=== PATIENT | female | born 1975 | race American Indian/Alaskan Native ===

== ENCOUNTER → 2018-01-20 17:01 | Emergency (ER) | payer MEDICARE ==
[2018-01-20 17:02] VITALS: BMI 29.8
== END | disposition left against medical advice (07) ==
LOC: C.ER 17:01
DX: Z02.89 Encounter for other administrative examinations (principal); Z00.00 Encounter for general adult medical examination without abnormal findings

== ENCOUNTER 2018-03-05 10:13 | Inpatient (IN) | payer MEDICARE ==
[2018-03-05 10:13] VITALS: BMI 29.8
--- NOTE | 2018-03-05 11:16 | C.PDOC ---
History Of Present Illness 42 y/o female, with history of pancreatitis, comes in complaining of abdominal cramping for the past 5 days, associated with nausea, vomiting, and diarrhea. Patient states she vomited 10 minutes ago in the ER. Patient has PSHx of ap pendectomy. Denies fever. LAST ETOH 2 DAYS AGO Time Seen by Provider: 03/05/18 10:56 Chief Complaint (Nursing): Abdominal Pain History Per: Patient History/Exam Limitations: no limitations Onset/Duration Of Symptoms: Days Current Symptoms Are (Timing): Still Present Past Medical History Reviewed: Historical Data, Nursing Documentation, Vital Signs Vital Signs: Last Vital Signs Temp 98.3 F 03/05/18 10:41 Pulse 106 H 03/05/18 10:41 Resp 18 03/05/18 10:41 BP 122/99 H 03/05/18 10:41 Pulse Ox 99 03/05/18 10:41 - Medical History PMH: Pancreatitis Denies: HIV, HTN, Chronic Kidney Disease, Seizures Surgical History: Appendectomy - [facility] Procedures DETOXIFICATION SERVICES FOR SUBSTANCE ABUSE TREATMENT (11/22/14) Family History: States: No Known Family Hx - Social History Hx Tobacco Use: No Hx Alcohol Use: Yes Hx Substance Use: Yes (cocaine) - Immunization History Hx Tetanus Toxoid Vaccination: Yes Hx Influenza Vaccination: Yes Hx Pneumococcal Vaccination: Yes Review Of Systems Except As Marked, All Systems Reviewed And Found Negative. Constitutional: Negative for: Fever, Chills Cardiovascular: Negative for: Chest Pain Respiratory: Negative for: Shortness of Breath Gastrointestinal: Positive for: Nausea, Vomiting, Abdominal Pain (cramping), Diarrhea Skin: Negative for: Rash Physical Exam - Physical Exam Appears: Non-toxic, No Acute Distress, Other (dehydrated) Skin: Warm, Dry Head: Atraumatic, Normacephalic Eye(s): bilateral: Normal Inspection Oral Mucosa: Moist Neck: Supple Chest: Symmetrical Cardiovascular: Rhythm Regular, No Murmur Respiratory: Normal Breath Sounds, No Rales, No Rhonchi, No Wheezing Gastrointestinal/Abdominal: Soft, No Tenderness, No Distention, No Guarding, No Rebound Extremity: Bilateral: Atraumatic, Normal Color And Temperature, Normal ROM Neurological/Psych: Oriented x3, Normal Speech ED Course And Treatment - Laboratory Results Result Diagrams: 03/05/18 11:32 03/05/18 11:32 O2 Sat by Pulse Oximetry: 99 (RA) Pulse Ox Interpretation: Normal Progress Note: Labs ordered. Patient was given bentyl IM, zofran IV, IV fluids. Reevaluation Time: 12:35 Reassessment Condition: Unchanged (PERSIST PAIN. +LIPASE WILL ADMIT) - Physician Consult Information Time Consulting Physician Contacted: 12:53 Physician Contacted: Gabriele Colunga Disposition Counseled Patient/Family Regarding: Studies Performed, Diagnosis - Disposition Disposition: HOSPITALIZED Disposition Time: 12:53 Condition: SERIOUS Forms: [facility] (Ecuadorean) - POA Present On Arrival: Poor Glycemic Control - Clinical Impression Clinical Impression: Pancreatitis, acute, Alcohol dependence - Scribe Statement The provider has reviewed the documentation as recorded by the Ag Meza Provider Attestation: All medical record entries made by the Ag were at my direction and personally dictated by me. I have reviewed the chart and agree that the record accurately reflects my personal performance of the history, physical exam, medical decision making, and the department course for this patient. I have also personally directed, reviewed, and agree with the discharge instructions and disposition.
[2018-03-05] MEDS ORDERED: Sodium Chloride 0.9% 1,000 ML ONE (11:36)
[2018-03-05 11:37] LABS: HEMOGLOBIN 12.9 g/dL (11.0-16.0); MEAN CELL VOLUME 77.1 fL (81.0-99.0); MEAN CORPUSCULAR HEMOGLOBIN 25.5 pg (27.0-31.0); MEAN CORPUSCULAR HGB CONC 33.1 g/dL (33.0-37.0); MEAN PLATELET VOLUME 8.7 fL (7.2-11.7); RBC 5.07 Mil/uL (3.80-5.20); RED CELL DISTRIBUTION WIDTH 16.5 % (11.5-14.5)
[2018-03-05 12:09] LABS: ALB/GLOB RATIO 1.2 (1.0-2.1); ALBUMIN 4.7 g/dL (3.5-5.0); ALT/SGPT 108 U/L (9-52); AST/SGOT 105 U/L (14-36); BLOOD UREA NITROGEN 12 mg/dL (7-17); CALCIUM 9.7 mg/dl (8.6-10.4); GFR NON-AFRICAN AMERICAN > 60; LIPASE 839 U/L (23-300)
[2018-03-05] MEDS ORDERED: HYDROmorphone 0.5 mg/0.5 ml ISec IVP STA (12:35)
[2018-03-05] MEDS ORDERED: HYDROmorphone 0.5 mg/0.5 ml ISec IVP ONE (13:00)
[2018-03-05] MEDS ORDERED: Morphine 4 MG/ML VIAL ONE ×2 (16:48→20:22)
[2018-03-05] MEDS: Morphine 4 MG/ML VIAL IVP PRN ×2 (16:55→20:25)
[2018-03-05] MEDS ORDERED: Dextrose 5%-0.225% NS 1,000 ML IV ONE (18:08)
[2018-03-05] MEDS: Dextrose 5%/0.45% NS 1,000 ML IV SCH (18:09)
--- NOTE | 2018-03-05 20:48 | CP.PCM.HP ---
Past Patient History - Infectious Disease Hx of Infectious Diseases: None - Past Medical History & Family History Past Medical History?: Yes - Past Social History Smoking Status: Heavy Smoker > 10 Cigarettes Daily - CARDIAC Hx Hypertension: No - PULMONARY Hx Tuberculosis: No - NEUROLOGICAL Hx Seizures: No - HEENT Hx HEENT Problems: No - RENAL Hx Chronic Kidney Disease: No - ENDOCRINE/METABOLIC Hx Endocrine Disorders: No - HEMATOLOGICAL/ONCOLOGICAL Hx Human Immunodeficiency Virus (HIV): No - INTEGUMENTARY Hx Dermatological Problems: No - MUSCULOSKELETAL/RHEUMATOLOGICAL Hx Falls: Yes - GASTROINTESTINAL Hx Pancreatitis: Yes - GENITOURINARY/GYNECOLOGICAL Hx Genitourinary Disorders: No - PSYCHIATRIC Hx Substance Use: Yes (cocaine) - SURGICAL HISTORY Hx Appendectomy: Yes - ANESTHESIA Hx Anesthesia: Yes Hx Anesthesia Reactions: No Hx Malignant Hyperthermia: No Meds Allergies/Adverse Reactions: Allergies Allergy/AdvReac Type Severity Reaction Status Date / Time ibuprofen Allergy Verified 09/09/15 16:08 Results - Vital Signs Recent Vital Signs: Last Vital Signs Temp 98.1 F 03/05/18 18:47 Pulse 72 03/05/18 18:47 Resp 17 03/05/18 18:47 BP 126/79 03/05/18 18:47 Pulse Ox 97 03/05/18 18:47 - Labs Result Diagrams: 03/05/18 11:32 03/05/18 11:32 Labs: Laboratory Results - last 24 hr 03/05/18 03/05/18 11:32 11:32 WBC 6.0 RBC 5.07 Hgb 12.9 Hct 39.1 MCV 77.1 L D MCH 25.5 L MCHC 33.1 RDW 16.5 H Plt Count 234 MPV 8.7 Sodium 135 Potassium 3.3 L Chloride 92 L Carbon Dioxide 30 Anion Gap 16 BUN 12 Creatinine 0.7 Est GFR ( Amer) > 60 Est GFR (Non-Af Amer) > 60 Random Glucose 123 H D Calcium 9.7 Total Bilirubin 1.2 AST 105 H ALT 108 H D Alkaline Phosphatase 121 Total Protein 8.6 H Albumin 4.7 Globulin 3.9 Albumin/Globulin Ratio 1.2 Lipase 839 H Alcohol, Quantitative < 10
[2018-03-06] MEDS ORDERED: Morphine 4 MG/ML VIAL ONE ×3 (00:30→09:55)
[2018-03-06] MEDS: Morphine 4 MG/ML VIAL IVP PRN ×4 (00:31→17:15)
[2018-03-06] MEDS: Dextrose 5%/0.45% NS 1,000 ML IV SCH (02:14)
[2018-03-06] MEDS ORDERED: Dextrose 5%-0.225% NS 1,000 ML IV ONE (02:14)
--- NOTE | 2018-03-06 04:18 | HP ---
CHIEF COMPLAINT: Abdominal pain for five days. HISTORY OF PRESENT ILLNESS: This is a 42-year-old female, well known to me, with a history of pancreatitis, alcoholism, anxiety and depression who has been drinking and according to the patient, her last alcohol intake was two days ago. Five days ago, she developed acute upper abdominal pain, radiating to the back, associated with nausea, vomiting and diarrhea. Along with that, she has . The patient has generalized aches and pains. She is weak. She is anxious. She is having palpitation and dizziness. She denies any hematemesis, melena, or hematochezia. She denies any prior history of gallbladder stones or cholesterol problems. There is no history of polyuria, polydipsia, or polyphagia. There is no history of hematuria or pyuria. She denies any sneezing, itchy eyes, or itchy nose. There is no history of back pain, hip pain, or neck pain. PAST MEDICAL HISTORY: Alcoholism, pancreatitis, alcoholic gastritis. SOCIAL HISTORY: She smokes. She drinks. FAMILY HISTORY: Negative for pancreatitis. CURRENT MEDICATIONS: Percocet 10 mg at home. PHYSICAL EXAMINATION: GENERAL: Middle-aged female, in distress. VITAL SIGNS: Blood pressure 134/90, pulse 74, respiratory rate 18, temperature 98.7. SKIN: Warm. Good turgor. No bruising. No purpura. She has tattoos. HEENT: Atraumatic and normocephalic. Negative pallor. Negative jaundice. Extraocular movements are intact. NECK: Supple. No JVD. No lymph node. No thyromegaly. No carotid bruits. CHEST WALL: Bilateral symmetrical expansion. No tenderness. No deformity. BREASTS: No masses. LUNGS: Bilaterally clear. No rales. No rhonchi. CARDIOVASCULAR SYSTEM: PMI in the fifth intercostal space. S1 and S2 are regular. No heave. No thrill. ABDOMEN: Soft. Epigastric tenderness. Bowel sounds are present. RECTAL AND PELVIC: Refused. EXTREMITIES: No clubbing, cyanosis, or edema. CENTRAL NERVOUS SYSTEM: Awake, alert, oriented x3. Anxious, tremulous. ASSESSMENT: 1. Acute alcoholic pancreatitis. 2. Hypokalemia. 3. Alcoholic hepatitis. 4. Alcoholism. PLAN: Admit. Detailed orders are written. Seen and examined. Gabriele Colunga MD
[2018-03-06] MEDS ORDERED: Enoxaparin 40 mg Syringe SC SCH (10:00)
[2018-03-06] MEDS ORDERED: Lactated Ringer's 1,000 ML IV ONE ×2 (11:00→14:00)
[2018-03-06] MEDS ORDERED: Propofol 10 mg/ml Inj (20 ML) ONE (11:06)
[2018-03-06] MEDS ORDERED: Midazolam 2 MG/2 ML VIAL ONE (11:06)
[2018-03-06 11:09] LABS: BARBITURATES, UR NEGATIVE (NEGATIVE); BENZODIAZEPINES, UR NEGATIVE (NEGATIVE); PHENCYCLIDINE, UR NEGATIVE (NEGATIVE)
[2018-03-06 11:35] VITALS: O2SAT 100
[2018-03-06 11:49] LABS: OPIATES, UR POSITIVE (NEGATIVE)
[2018-03-06 16:01] VITALS: TEMP 98.2
[2018-03-06 17:32] VITALS: BP 130/92; PULSE 74; RESP 16
--- NOTE | 2018-03-06 19:13 | CP.PCM.PN ---
Subjective - Date & Time of Evaluation Date of Evaluation: 03/06/18 Time of Evaluation: 19:00 - Subjective Subjective: Patient wanted to leave against medical advice. Patient was alert and oriented x3. Discussed risks for leaving against medical advice such as infection, bleeding and . Patient stated she understood those risks and still wanted to leave against medical advice. Primary physician Dr. Colunga was notified. Objective - Vital Signs/Intake and Output Vital Signs (last 24 hours): Temp Pulse Resp BP Pulse Ox 98.2 F 74 16 130/92 H 100 03/06/18 15:25 03/06/18 17:15 03/06/18 17:15 03/06/18 17:15 03/06/18 15:25 - Medications Medications: Current Medications Acetaminophen (Tylenol 325mg Tab) 650 mg PO Q6 PRN PRN Reason: Pain, moderate (4-7) Last Admin: 03/05/18 23:35 Dose: 650 mg Enoxaparin Sodium (Lovenox) 40 mg SC DAILY HERNANDEZ Last Admin: 03/06/18 10:21 Dose: Not Given Famotidine (Pepcid) 20 mg IVP Q12 HERNANDEZ Last Admin: 03/06/18 10:26 Dose: 20 mg Dextrose/Sodium Chloride (Dextrose 5%/0.45% Ns 1000 Ml) 1,000 mls @ 100 mls/hr IV .Q10H HERNANDEZ Last Admin: 03/06/18 02:14 Dose: 100 mls/hr Metoclopramide HCl (Reglan) 5 mg IVP Q6H HERNANDEZ Morphine Sulfate (Morphine) 2 mg IVP Q4 PRN PRN Reason: apin Last Admin: 03/06/18 17:15 Dose: 2 mg Ondansetron HCl (Zofran Inj) 4 mg IVP Q6 PRN PRN Reason: Nausea/Vomiting Last Admin: 03/06/18 09:45 Dose: 4 mg - Labs Labs: 03/05/18 11:32 03/05/18 11:32
--- NOTE | 2018-03-06 20:51 | CP.PCM.DIS ---
Provider - Provider Date of Admission: 03/05/18 12:54 Attending physician: Gabriele Colunga MD Consults: 03/05/18 15:10 Gastroenterology Consult Routine Comment: Consulting Provider: Avis Schuler Consulting Physician: Avis Schuler Reason for Consult: [facility] Course - Lab Results Lab Results: Most Recent Lab Values WBC 6.0 K/uL (4.8-10.8) 03/05/18 11:32 RBC 5.07 Mil/uL (3.80-5.20) 03/05/18 11:32 Hgb 12.9 g/dL (11.0-16.0) 03/05/18 11:32 Hct 39.1 % (34.0-47.0) 03/05/18 11:32 MCV 77.1 fL (81.0-99.0) L D 03/05/18 11:32 MCH 25.5 pg (27.0-31.0) L 03/05/18 11:32 MCHC 33.1 g/dL (33.0-37.0) 03/05/18 11:32 RDW 16.5 % (11.5-14.5) H 03/05/18 11:32 Plt Count 234 K/uL (130-400) 03/05/18 11:32 MPV 8.7 fL (7.2-11.7) 03/05/18 11:32 Sodium 135 mmol/L (132-148) 03/05/18 11:32 Potassium 3.3 mmol/L (3.6-5.2) L 03/05/18 11:32 Chloride 92 mmol/L (98-107) L 03/05/18 11:32 Carbon Dioxide 30 mmol/L (22-30) 03/05/18 11:32 Anion Gap 16 (10-20) 03/05/18 11:32 BUN 12 mg/dL (7-17) 03/05/18 11:32 Creatinine 0.7 mg/dL (0.7-1.2) 03/05/18 11:32 Est GFR ( Amer) > 60 03/05/18 11:32 Est GFR (Non-Af Amer) > 60 03/05/18 11:32 Random Glucose 123 mg/dL (65-105) H D 03/05/18 11:32 Calcium 9.7 mg/dl (8.6-10.4) 03/05/18 11:32 Total Bilirubin 1.2 mg/dL (0.2-1.3) 03/05/18 11:32 AST 105 U/L (14-36) H 03/05/18 11:32 ALT 108 U/L (9-52) H D 03/05/18 11:32 Alkaline Phosphatase 121 U/L (38-126) 03/05/18 11:32 Total Protein 8.6 g/dL (6.3-8.3) H 03/05/18 11:32 Albumin 4.7 g/dL (3.5-5.0) 03/05/18 11:32 Globulin 3.9 gm/dL (2.2-3.9) 03/05/18 11:32 Albumin/Globulin Ratio 1.2 (1.0-2.1) 03/05/18 11:32 Lipase 457 U/L (23-300) H 03/06/18 12:05 Urine Opiates Screen Positive (NEGATIVE) H 03/06/18 10:39 Urine Methadone Screen Negative (NEGATIVE) 03/06/18 10:39 Ur Barbiturates Screen Negative (NEGATIVE) 03/06/18 10:39 Ur Phencyclidine Scrn Negative (NEGATIVE) 03/06/18 10:39 Ur Amphetamines Screen Negative (NEGATIVE) 03/06/18 10:39 U Benzodiazepines Scrn Negative (NEGATIVE) 03/06/18 10:39 U Oth Cocaine Metabols Negative (NEGATIVE) 03/06/18 10:39 U Cannabinoids Screen Negative (NEGATIVE) 03/06/18 10:39 Alcohol, Quantitative < 10 mg/dl (0-10) 03/05/18 11:32 Discharge Plan - Follow Up Plan Condition: GOOD Disposition: AGAINST MEDICAL ADVICE
--- NOTE | 2018-03-07 08:53 | DS ---
DISCHARGE DIAGNOSES: 1. Pancreatitis. 2. Alcoholism. 3. Dehydration. 4. Hypokalemia. HISTORY OF PRESENT ILLNESS: This is a 42-year-old female with a history of alcoholism, anxiety, depression. She drinks heavily, daily in large quantity. She developed abdominal pain, nausea, vomiting, and she was found to have pancreatitis. Patient was started on n.p.o., IV fluid, falls, seizure precaution, GI evaluation, and patient was in process of improvement. She felt better. Patient sign out against medical advice. Patient was to be evaluated by GI. She denies any fever, chills. No cough. No sore throat. PHYSICAL EXAMINATION: VITAL SIGNS: Blood pressure 130/92, pulse 74, respiratory rate 16, temperature 98.2. LUNGS: Clear. CARDIOVASCULAR SYSTEM: S1 and S2 are regular. ABDOMEN: Positive epigastric tenderness. ASSESSMENT: 1. Acute alcoholic pancreatitis. 2. Alcoholism. PLAN: Patient signed out against medical advice. Gabriele Colunga MD
--- NOTE | 2018-03-09 08:56 | DS ---
That is from Dr. العلي for Dr. Gabriele Colunga. I was called for GI consultation by the admitting medical team. The patient was seen and fully examined on 03/05/2018 as per the request of Dr. Gabriele Colunga . The entire chart is reviewed including but not limited to most recent lab and radiology study results, current and the previous medication list, current and the previous medical events, allergy to medication list as well as the available current and the previous medical records. A short handwritten consultation sheet left in the chart at the time of my GI consultation on 03/05/2018. Case discussed with the staff at length. This is a 42-year-old female who was admitted to the hospital through the emergency room with a main complaint of severe abdominal pain, crampy in nature, associated with episodes of nausea and vomiting, persistent dyspepsia, diarrhea 4 to 5 days prior to her admission. The patient denied any actual bleeding, but recent history of excessive alcohol intake. PAST MEDICAL HISTORY: Including but not limited to: 1. Alcoholism. 2. Alcohol-induced recurrent pancreatitis. 3. Peptic ulcer disease. The patient denied any chest pain, palpitation, chills or fever, or significant shortness of breath. PAST SURGICAL HISTORY: Status post appendectomy. On record, the patient had also detoxification service for substance abuse treatment done in October 2014. FAMILY HISTORY: Unknown. SOCIAL HISTORY: Positive for excessive alcohol intake. CURRENT MEDICATIONS: Post admission medication list reviewed. ALLERGIES TO MEDICATION: Unclear. After being admitted to hospital, the patient was found to have normal CBC initially, but potassium 3.3 and blood glucose level 123. PHYSICAL EXAMINATION: GENERAL: A 42-year-old female, awake, alert, oriented, complaining of severe abdominal pain, with persistent nausea and episodes of vomiting at the time of her admission. VITAL SIGNS: The patient is afebrile with pulse of 100, respiratory rate 20 to 22, blood pressure 120/96. HEENT: Showed dry oral mucous membrane. Nonicteric sclerae. LUNGS: Few scattered crepitation. Decreased air entry at bases. HEART: Positive S1 and S2 with increased rate. LYMPH NODES: No lymphadenitis or lymphadenopathy. ABDOMEN: Soft with mild generalized tenderness, but mainly in the midepigastric and midabdominal line. No mass or organomegaly. No rebound tenderness or guarding. RECTAL: The patient refused. EXTREMITIES: Without significant clubbing, cyanosis or edema. NEUROLOGIC: No reported new neurological deficits, sensory or motor. No reported new focal deficits. IMPRESSION: 1. Alcohol-induced recurrent acute pancreatitis. 2. Re-exacerbation of peptic ulcer disease, to rule out gastric versus duodenal ulcer. 3. Alcoholism, by history. 4. Known history of status post appendectomy. 5. An episode of hyperglycemia, of unclear etiology. 6. Electrolyte imbalance with hypokalemia. SUGGESTIONS: 1. Agree with your plan. 2. Abdominal ultrasound. 3. Repeat serum lipase level. 4. Reglan IV. Proton pump inhibitors IV. Rehydration. 5. Antireflux measures. 6. Upper endoscopy when the patient is stable clinically. 7. Further recommendation to follow. Thank you for letting me participate in your patient's case management. Avis العلي MD
== END 2018-03-06 18:55 | disposition left against medical advice (07) | DRG 383 ==
LOC: C.ER 10:13 → C.9E 12:54 → C.9S 03-06 12:41
PROVIDERS: ADMIT Internal Medicine; ATTEND Internal Medicine
PROC: 0DB68ZX Excision of Stomach, Via Natural or Artificial Opening Endoscopic, Diagnostic (ICD-10-PCS; principal; 2018-03-06 11:00)
DX: K25.9 Gastric ulcer, unspecified as acute or chronic, without hemorrhage or perforation (principal); K85.20 Alcohol induced acute pancreatitis without necrosis or infection; K70.10 Alcoholic hepatitis without ascites; F17.200 Nicotine dependence, unspecified, uncomplicated; E87.6 Hypokalemia; E86.0 Dehydration; F10.20 Alcohol dependence, uncomplicated; Z68.22 Body mass index [BMI] 22.0-22.9, adult; K21.0 Gastro-esophageal reflux disease with esophagitis; K44.9 Diaphragmatic hernia without obstruction or gangrene

== ENCOUNTER 2018-04-02 19:50 | Emergency (ER) | payer MEDICARE ==
[2018-04-02 19:51] VITALS: BMI 29.8
[2018-04-02 20:05] VITALS: BP 135/95; PULSE 107; RESP 20; TEMP 98; O2SAT 96
== END 2018-04-02 19:57 | disposition left against medical advice (07) ==
LOC: C.ER 19:50
DX: Z02.89 Encounter for other administrative examinations (principal); M54.2 Cervicalgia

== ENCOUNTER 2018-04-17 17:00 | Emergency (ER) | payer MEDICARE ==
[2018-04-17 17:08] VITALS: BMI 34.8
[2018-04-17 17:11] VITALS: O2SAT 98
[2018-04-17] MEDS ORDERED: Alum-Mag Hydrox-Simethicone Susp (30 mL) PO STA (17:59)
--- NOTE | 2018-04-17 18:00 | C.PDOC ---
History Of Present Illness 42 y/o female presents to the ER complaining of chronic abdominal pain. 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 Patient has been evaluated many time in [facility] ER. Patient was seen in [facility] ER on 04/02/18 and she left without being seen. Denies having fever,chills,CP, SOB, nausea, and vomiting. Of note, patient has ETOH on breath. Time Seen by Provider: 04/17/18 17:51 Chief Complaint (Nursing): Syncope History Per: Patient History/Exam Limitations: no limitations Onset/Duration Of Symptoms: Days Current Symptoms Are (Timing): Still Present Severity: Moderate Past Medical History Reviewed: Historical Data, Nursing Documentation, Vital Signs Vital Signs: Last Vital Signs Temp 98.5 F 04/17/18 17:08 Pulse 73 04/17/18 17:08 Resp 18 04/17/18 17:08 BP 118/84 04/17/18 17:08 Pulse Ox 98 04/17/18 17:08 - Medical History PMH: Pancreatitis Denies: HIV, HTN, Chronic Kidney Disease, Seizures Surgical History: Appendectomy - [email or web address] Procedures DETOXIFICATION SERVICES FOR SUBSTANCE ABUSE TREATMENT (11/22/14) EXCISION OF STOMACH, ENDO, DIAGN (03/05/18) Family History: States: No Known Family Hx - Social History Hx Tobacco Use: No Hx Alcohol Use: Yes Hx Substance Use: No - Immunization History Hx Tetanus Toxoid Vaccination: No Hx Influenza Vaccination: No Hx Pneumococcal Vaccination: No Review Of Systems Except As Marked, All Systems Reviewed And Found Negative. Constitutional: Negative for: Fever, Chills Cardiovascular: Negative for: Chest Pain Respiratory: Negative for: Shortness of Breath Gastrointestinal: Positive for: Abdominal Pain. Negative for: Nausea, Vomiting Physical Exam - Physical Exam Appears: No Acute Distress, Other (obese female) Skin: Normal Color, Warm, Dry Head: Atraumatic, Normacephalic Eye(s): bilateral: Normal Inspection Nose: Normal Oral Mucosa: Moist, Other (ETOH on breath) Neck: Supple Chest: Symmetrical Cardiovascular: Rhythm Regular Respiratory: Normal Breath Sounds, No Rales, No Rhonchi, No Wheezing Gastrointestinal/Abdominal: Normal Exam, Soft, No Tenderness, No Guarding, No Rebound Neurological/Psych: Oriented x3, Normal Speech ED Course And Treatment O2 Sat by Pulse Oximetry: 98 (RA) Pulse Ox Interpretation: Normal Medical Decision Making Medical Decision Making: persistent alcohol abuse ? gastritis/pancreatitis pt refused w/u and will f/u with Dr. Colunga Pt request ETOH detox. No detox beds available. Pt has been discharged with Detox info. Disposition Doctor Will See Patient In The: Office Counseled Patient/Family Regarding: Studies Performed, Diagnosis - Disposition Referrals: Alcoholics Anonymous [Outside] [facility] [Outside] [facility] [place] [Outside] [facility] [Outside] [place] [facility] [Outside] Gabriele Colunga MD [Staff Provider] - Disposition: HOME/ ROUTINE Disposition Time: 18:00 Condition: GOOD Additional Instructions: maalox 30 cc's 5x/day for suspected alcoholic gastritis Pepcid 20 mg twice a day to lower stomach acid Decrease alcohol abuse and seek AA or Alcohol Detox programs info given Instructions: Alcohol Use - When Is Drinking a Problem? Forms: [facility] (Trinid[place]) - Clinical Impression Clinical Impression: Alcohol abuse - Scribe Statement The provider has reviewed the documentation as recorded by the Brittneyibe Tamanna Arita Provider Attestation: All medical record entries made by the Scribe were at my direction and p ersonally dictated by me. I have reviewed the chart and agree that the record accurately reflects my personal performance of the history, physical exam, medical decision making, and the department course for this patient. I have also personally directed, reviewed, and agree with the discharge instructions and disposition.
[2018-04-17] MEDS ORDERED: Aluminum Hydroxide/Magnesium Hydroxide Susp (30 mL) ONE (18:10)
[2018-04-17 18:46] VITALS: BP 121/79; PULSE 85; RESP 20; TEMP 98
== END 2018-04-17 18:47 | disposition home or self-care (01) ==
LOC: C.ER 17:00
DX: F10.10 Alcohol abuse, uncomplicated (principal); Y90.9 Presence of alcohol in blood, level not specified